=== PATIENT | male | born 1975 | race Caucasian/White ===

== ENCOUNTER 2024-11-27 16:46 | Emergency (ER) | payer MEDICAID, SELFPAY ==
[2024-11-27 17:23] VITALS: BP 171/103; PULSE 80; RESP 18; TEMP 37.3; O2SAT 99; BMI 34.9
--- NOTE | 2024-11-27 17:28 | XR_ITS ---
Examination: Bilateral wrists 6 views TECHNIQUE: AP oblique lateral intravenous total 6 views Date and time: November 27, 2024 1746 hours INDICATIONS: Sudden onset wrist pain beginning 3 days ago. FINDINGS: Small old bone density 3 mm at the base of the left fifth metacarpal No acute wrist fracture 3 mm old bone density dorsal to the proximal carpal row left wrist on the lateral view Mild osteoarthritis bilaterally radiocarpal and first carpometacarpal joints No avascular necrosis No erosive arthritis IMPRESSION: Bilateral mild osteoarthritis
--- NOTE | 2024-11-27 17:29 | PD.EDRME ---
Rapid Medical Screening Exam E Arrival date/time: 11/27/24 16:46 48-year-old male presents to the emergency department today for complaint of bilateral arm pain and generalized joint pain throughout his body Chief Complaint: Extremity Problem,Nontraumatic Vital signs: Vital Signs Temperature 99.1 F 11/27/24 17:23 Pulse Rate 80 11/27/24 17:23 Respiratory Rate 18 11/27/24 17:23 Blood Pressure 171/103 H 11/27/24 17:23 Pulse Oximetry (%) 99 11/27/24 17:23 Oxygen Delivery Method Room Air 11/27/24 17:23
[2024-11-27 18:03] LABS: Basophils # (Auto) 0.1 Thou/mm3 (0.0-0.2); Basophils % (Auto) 1 % (0-2.5); Eosinophils # (Auto) 0.2 Thou/mm3 (0.0-0.5); Eosinophils % (Auto) 1 % (0-10); Hematocrit 41.8 % (41.0-53.0); Hemoglobin 14.6 g/dL (13.5-16.0); Immature Granulocytes Auto 0.05 Thou/mm3 (0.00-0.00); Lymphocytes # (Auto) 1.9 Thou/mm3 (1.0-4.8); Lymphocytes % (Auto) 13 % (10-50); Mean Corpuscular HGB Conc 34.9 g/dl (31.0-37.0); Mean Corpuscular Hemoglobin 30.0 pg (25.0-35.0); Mean Corpuscular Volume 86 fL (80-100); Monocytes # (Auto) 1.0 Thou/mm3 (0.0-0.8); Monocytes % (Auto) 7 % (0-12); Neutrophils # (Auto) 11.5 Thou/mm3 (1.8-7.7); Neutrophils % (Auto) 78 % (37-80); Nucleated Red Blood Cell # 0.00 Thou/mm3 (0.00-0.00); Nucleated Red Blood Cell % 0 /100 WBC (0); Platelet Count 207 Thou/mm3 (140-440); RDW Standard Deviation 39.4 fL (35.1-43.9); Red Blood Count 4.87 Miln/mm3 (4.50-5.90); White Blood Count 14.7 Thou/mm3 (3.8-10.6)
[2024-11-27] MEDS: KETOROLAC INJ 60 MG/2 ML VIAL 30 MG IM (18:19)
[2024-11-27] MEDS: DIAZEPAM 5 MG TABLET 10 MG PO (18:20)
[2024-11-27 18:23] LABS: Sed Rate (ESR) 16 mm/hr (0-15)
[2024-11-27 20:34] LABS: Alanine Aminotransferase 37 U/L (10-49); Albumin, Serum 4.8 gm/dL (3.5-5.0); Albumin/Globulin Ratio 1.8 (1.2-2.2); Alkaline Phosphatase 97 U/L (46-116); Anion Gap 10 (7-16); Aspartate Amino Transferase 32 U/L (0-34); BUN/Creatinine Ratio 9 Ratio (12-20); Bilirubin,Total 0.4 mg/dL (0.3-1.2); Blood Urea Nitrogen 9 mg/dL (9-23); Calcium 9.7 mg/dL (8.3-10.6); Calcium (Corrected) 9.7 mg/dL (8.5-10.1); Carbon Dioxide 24.4 mMol/L (20.0-31.0); Chloride 107 mMol/L (98-107); Creatine Kinase 346 U/L (34-171); Creatinine (Component) 1.0 mg/dL (0.6-1.3); Estimated Creatinine Clearance 94.8 mL/min (>60); Globulin 2.6 gm/dL (2.3-3.5); Glucose 107 mg/dL (74-106); Osmolality,Calculated 279 (275-295); Potassium 4.0 mMol/L (3.4-5.1); Sodium 141 mMol/L (136-145); Total Protein 7.4 gm/dL (5.7-8.2); Uric Acid 5.0 mg/dL (3.7-9.2); eGFR > 60 See Note
[2024-11-27 21:00] LABS: C-Reactive Protein 4.4 mg/dL (0.0-0.9)
--- NOTE | 2024-11-27 22:16 | EDNOTE_ITS ---
ED Extremity Problem RME/HPI General Chief complaint: Extremity Problem,Nontraumatic Stated complaint: Hand pain, neck pain, leg pain Arrival date/time: 11/27/24 16:46 RME / HPI RME / HPI Narrative: 11/27/24 16:46 48-year-old male presents to the emergency department today for complaint of bilateral arm pain and generalized joint pain throughout his body DR. MARIE MAIN ED EVALUATION: 48 y/o male presents to ED c/o worsening joint pain and stiffness, primarily in the BL hands and wrists x 3 days. He states the pain is in the bones rather than the muscles. Patient has tried Icy Hot, RADHA wrap, and Ibuprofen with some relief. Today, patient is unable to close his hands or bend his wrists due to pain with the right being worse than the left. Denies any recent drug use or w orking outside in the heat. No other concerns or complaints expressed at this time. Related Data Previous Rx's ?Medication ?Instructions ?Recorded prednisone 50 mg tablet 50 mg PO QDAY #7 tabs Allergies Allergy/AdvReac Type Severity Reaction Status Date / Time No Known Drug Allergies Allergy Verified 11/27/24 16:53 Review of Systems Review of Systems Systems Reviewed: All systems reviewed, normal except as documented Past Medical History Social History SMOKING STATUS: Former smoker SUBSTANCE USE: methamphetamine, prescription drug and other (K-2 Spice) ALCOHOL: Former ED Exam Narrative Physical exam: Generally patient is alert in mild distress secondary to overall body pain, heart regular rate and rhythm, lungs clear to auscultation equal bilaterally, abdomen soft bowel sounds present nondistended nontender extremities showed no swelling of any joint or erythema. Patient has tenderness to the wrists. Neurologic exam showed no focal motor or sensory deficits. Neck showed no nuchal rigidity. Course Quality Measures none Orders Category Date Time Status XR wrist comp BI min 3V Stat Exams 11/27/24 17:28 Completed CBC Stat Lab 11/27/24 17:40 Completed CMP [Comprehensive Metabolic Panel] Stat Lab 11/27/24 17:40 Completed CRP [C-Reactive Protein] Stat Lab 11/27/24 17:40 Completed Creatine Kinase Stat Lab 11/27/24 17:40 Completed ESR [Sed Rate (ESR)] Stat Lab 11/27/24 17:40 Completed Uric Acid Stat Lab 11/27/24 17:40 Completed Diazepam [Valium] Med 11/27/24 17:28 Discontinued 10 mg PO X1 ONE Ketorolac Inj [Toradol Inj] Med 11/27/24 17:28 Discontinued 30 mg IM X1 ONE Morphine Inj Med 11/27/24 22:17 Discontinued 4 mg IVP X1 ONE predniSONE Med 11/27/24 22:17 Discontinued 60 mg PO X1 ONE Vital Signs Vital signs: Vital Signs Temperature 99.1 F 11/27/24 17:23 Pulse Rate 80 11/27/24 17:23 Respiratory Rate 18 11/27/24 17:23 Blood Pressure 171/103 H 11/27/24 17:23 Pulse Oximetry (%) 99 11/27/24 17:23 Oxygen Delivery Method Room Air 11/27/24 17:23 Extremity Problem MDM Narrative MDM Narrative:: Scribe Attestation: I, Thuy Gee, am scribing for and in the presence of Dr. Marie. Provider Notation: Although this document has been carefully reviewed, there may still be some phonetic and other typographical errors.? These errors are purely grammatical due to imperfections in the software program and should not be construed in any way to? compromise the substance of the patient's medical care during this visit. I interpreted all labs. CPK is minimally elevated. Sed rate and CRP are also minimally elevated. I do not believe this patient had meningitis. He states that his bones feel sore. He denies trauma. Protocoled x-rays to bilateral wrist showed mild osteoarthritis. Patient has not been working out in the heat. Patient may have a mild myositis. Prior to my evaluation the patient received Toradol 30 mg IV. I will give the patient prednisone 60 mg p.o. as well as morphine 4 mg IV. He will be discharged on prednisone to be taken as prescribed. He does have primary care follow-up. Return to ER as needed or if condition worsens. There is no family history of lupus. Patient denies prior episode of such pain. Patient data External records reviewed:: [facility] previous records (No prior ED records available for review.) Clinical information provided by:: patient Social determinants that could affect healthcare access:: none Patient has the following chronic illnesses:: None reported How is presenting disease/condition affected by chronic disease/condition?: no chronic disease Evaluation data The following diagnostics were reviewed and interpreted by me:: lab results and radiology exam(s) Lab and/or radiology exams considered but not ordered:: None Interpretation Summary: RADIOLOGY Wrist X-Ray: FINDINGS: Small old bone density 3 mm at the base of the left fifth metacarpal No acute wrist fracture 3 mm old bone density dorsal to the proximal carpal row left wrist on the lateral view Mild osteoarthritis bilaterally radiocarpal and first carpometacarpal joints No avascular necrosis No erosive arthritis IMPRESSION: Bilateral mild osteoarthritis Medications / Prescriptions Medications or Prescriptions considered but not ordered:: None. Medication administrations:: Medication Administration History Discontinued Medications Diazepam (Diazepam 5 Mg Tablet) 10 mg PO X1 ONE Stop: 11/27/24 17:29 Last Admin: 11/27/24 18:20 Dose: 10 mg Documented By: Ketorolac Tromethamine (Ketorolac Inj 60 Mg/2 Ml Vial) 30 mg IM X1 ONE Stop: 11/27/24 17:29 Last Admin: 11/27/24 18:19 Dose: 30 mg Documented By: Morphine Sulfate (Morphine Sulf Inj 10 Mg/Ml Vial) 4 mg IVP X1 ONE Stop: 11/27/24 22:18 Prednisone (Prednisone 20 Mg Tablet) 60 mg PO X1 ONE Stop: 11/27/24 22:18 See above. Consultations Consultation(s) initiated? (list below): No Diagnosis Extremity Problem Differential Diagnosis: gout, cellulitis, superficial thrombophlebitis, deep venous thrombosis of upper extremity, lower extremity edema and deep vein thrombosis of lower extremity Most likely diagnosis given after review of the tests above:: None Admission Indicated Admission indicated?: not indicated Explain why admission is indicated or not indicated:: Patient does not meet admission criteria. Admission Request Was there a request for admission?: No Disposition Plan Disposition Plan: Discharge Discharge Attestation Discharge Attestation: The patient and all family members were given an opportunity to ask questions and understood the discharge instructions. Discharge instructions specifically effects, indications for sooner follow up or return to the emergency department, and the expected course of current diagnosis. Patient condition: Stable Discharge Plan Plan Patient Disposition: HOME (Self Care) Prescriptions/Referrals Prescriptions/Med Rec: New prednisone 50 mg tablet 50 mg PO QDAY Qty: 7 0RF Referrals: No Primary/Family,Physician [Primary Care Provider] - In 1 week Problem List Clinical Impression: Arthralgia, Myalgia Patient/Caregiver Discharge Instructions Education Materials: ED Arthralgia, ED Myalgias Additional Instructions: Medication as prescribed. Follow-up with your doctor. Return to ER as needed or if condition worsens. Print Language: Tajik Stand Alone Forms: Kayce Award Info., Patient Portal Info Letter
[2024-11-27] MEDS: MORPHINE SULF INJ 10 MG/ML VIAL 5 MG IM (23:04)
[2024-11-27 23:08] VITALS: BP 156/97; PULSE 68; RESP 15; TEMP 36.8; O2SAT 98
== END 2024-11-27 23:09 | disposition home or self-care (01) ==
PROVIDERS: Nurse Practitioner Primary Care; Emergency Provider Internal Medicine
DX: M25.532 Pain in left wrist (principal); M25.531 Pain in right wrist
CPT/HCPCS: 36415; 73110; 80053; 82550; 84550; 85025; 85652; 86140; 96372; 99283; J1885; J2270; J7512; A9270